=== PATIENT | male | born 1980 | race Caucasian/White ===

== ENCOUNTER → 2023-10-31 08:49 | Outpatient (CLI) | payer BC, SELFPAY ==
--- NOTE | 2023-10-31 08:51 | DI.ECHO.S_ITS ---
[facility] : : [id number] : : [facility] : : [place], : : [place] [address] : : Phone: [phone] Echocardiogram Report + + :Name: JACKY DILLARD Study Date: 10/31/2023 Height: 69 in : :[facility] ReadingLocation: Weight: 165 lb : : Gender: Male BSA: 1.9 m2 : :: 1980 Age: 43 yrs BP: 143/82 mmHg: :Reason For Study: SYNCOPE AND COLLAPSE : :Ordering Physician: NOREEN, : :ANGELA Gutierrez Performed By: Brandon Perales : :Referring: ANGELA SORTO : + + Interpretation Summary The ejection fraction is estimated to be 60-65%. The right ventricle is normal in size and function. There is mild mitral regurgitation. Procedure: A two-dimensional transthoracic echocardiogram with color flow and Doppler was performed. The study quality was technically adequate. There is no prior echocardiogram noted for this patient. The patient was in normal sinus rhythm during the exam. The heart rate ranged between 59-69 bpm during the study. Left Ventricle: The left ventricle is normal in size and wall thickness. The ejection fraction is estimated to be 60-65%. Left ventricular wall motion is normal. Right Ventricle: The right ventricle is normal in size and function. The right ventricular systolic function is normal. Atria: The left atrial size is normal. Right atrial size is normal. The interatrial septum grossly appears intact with no obvious evidence for an atrial septal defect. Mitral Valve: The mitral valve is normal in structure and function. There is no mitral valve stenosis. There is mild mitral regurgitation. Aortic Valve: The aortic valve is trileaflet. There is no aortic valve stenosis. No aortic regurgitation is present. Tricuspid Valve: The tricuspid valve is normal in structure and function. There is no tricuspid stenosis. No tricuspid regurgitation. Pulmonic Valve: The pulmonic valve is not well seen, but is grossly normal. There is no pulmonic valvular stenosis. There has been no significant change since the previous study. Great Vessels: The aortic root is normal size. The dimensions of the ascending aorta are normal. The IVC is of normal diameter and collapses greater than 50% with a sniff. This suggests a low right atrial pressure of 3 mm Hg. Pericardium/ Pleura There is no pericardial effusion. There is no pleural effusion. MMode/2D Measurements & Calculations LVIDd: 4.6 cm LVOT diam: 2.2 cm LVIDs: 3.0 cm Ao root diam: 3.3 cm IVSd: 0.86 cm asc Aorta Diam: 3.1 cm LVPWd: 0.91 cm Ao Arch Diam (Prox Trans): 2.7 cm LV ruiz. diameter/BSA (cm/m^2): 2.4 LV sys. diameter/BSA (cm/m^2): 1.6 FS: 34.4 % LA A2 area: 18.4 cm2 RA long axis: 4.6 cm LA A4 area: 16.2 cm2 RA area: 13.4 cm2 LA length (vol): 5.7 cm RA vol: 33.4 ml LA vol: 44.3 ml RA : 17.6 ml/m2 LA vol index: 23.3 ml/m2 RVD1 (basal): 3.1 cm RVD2 (mid): 2.7 cm TAPSE: 2.2 cm Doppler Measurements & Calculations Ao V2 max: 112.8 cm/sec LVOT Max Vance: 100.9 cm/sec Ao V2 mean: 77.1 cm/sec LV V1 max P.1 mmHg Ao V2 VTI: 22.0 cm LV V1 VTI: 22.4 cm Ao max P.1 mmHg Ao mean P.7 mmHg CAROLINE(I,D): 3.8 cm2 MV E max vance: 56.1 cm/sec CAROLINE(V,D): 3.4 cm2 MV A max vance: 43.3 cm/sec CAROLINE indexed to BSA (cm^2/m^2): 2.0 MV E/A: 1.3 sev ratio: 1.0 Med Peak E' Vance: 10.4 cm/sec E/E' med: 5.4 Lat Peak E' Vance: 13.9 cm/sec E/E' lat: 4.0 E/e' average: 4.7 MV dec time: 0.18 sec PA V2 max: 100.6 cm/sec PA V2 mean: 71.4 cm/sec PA mean P.4 mmHg PA pr(Accel): 22.5 mmHg SV(LVOT): 84.6 ml Reading Physician:03:13 PM
== END ==
LOC: ECHO 08:50
PROVIDERS: Referring Provider Family Medicine; Visit Provider Family Medicine
DX: E78.41 Elevated Lipoprotein(a) (principal); E78.5 Hyperlipidemia, unspecified; R55 Syncope and collapse; I34.0 Nonrheumatic mitral (valve) insufficiency
CPT/HCPCS: 93306

== ENCOUNTER → 2023-12-19 09:26 | Outpatient (CLI) | payer BC, SELFPAY ==
--- NOTE | 2023-12-19 09:27 | DI.US.S_ITS ---
PROCEDURE: US CAROTID DOPPLER BI INDICATIONS: ELEV LIPO A,SYNCOPE TECHNIQUE: Color and pulse Doppler interrogation was performed of both carotid systems, with image documentation and velocity measurements. COMPARISON: None. FINDINGS: Stenosis calculations are based on SRU (Society of Radiologists in Ultrasound) criteria. Right side: Brachial blood pressure: 124/83 mm Hg. Common carotid artery peak systolic velocity: 109 cm/sec. Internal carotid artery peak systolic velocity: 84 cm/sec. Internal carotid artery end diastolic velocity: 26 cm/sec. External carotid artery peak systolic velocity: 4.3 cm/sec. ICA/CCA peak systolic ratio: 0.77 . Terry scale imaging description: No atherosclerotic disease Percent internal carotid artery stenosis: None . Vertebral artery: Flow direction is antegrade. Left side: Brachial blood pressure: 126/83 mm Hg. Common carotid artery peak systolic velocity: 105 cm/sec. Internal carotid artery peak systolic velocity: 63 cm/sec. Internal carotid artery end diastolic velocity: 27 cm/sec. External carotid artery peak systolic velocity: 41 cm/sec. ICA/CCA peak systolic ratio: 0.6 . Terry scale imaging description: No atherosclerotic plaque Percent internal carotid artery stenosis: Less than 50% . Vertebral artery: Flow direction is antegrade. IMPRESSION: No atherosclerotic plaque or hemodynamically significant stenosis. Dictated by: Caden iWng M.D. on 12/19/2023 at 11:54 Approved by: Caden Wing M.D. on 12/19/2023 at 11:56
== END ==
PROVIDERS: PCP Family Medicine; Referring Provider Family Medicine; Visit Provider Family Medicine
DX: R55 Syncope and collapse (principal); E78.41 Elevated Lipoprotein(a); E78.5 Hyperlipidemia, unspecified
CPT/HCPCS: 93880